=== PATIENT | female | born 1935 | race Caucasian/White ===

== ENCOUNTER 2023-06-03 06:14 | Day surgery (SDC) | payer MEDICARE, OTHER, SELFPAY ==
[2023-06-03] VITALS (29 sets, daily range): BP systolic 82–173; BP diastolic 54–139; BMI 22.1
[2023-06-03 07:10] LABS: Hematocrit 41.7 % (37.0-47.0); Hemoglobin 13.7 g/dL (12.0-16.0); Mean Corp Hgb Conc. 32.9 g/dL (33.0-37.0); Mean Corpuscular Hgb 29.5 pg (27.0-31.0); Mean Corpuscular Volume 89.9 fL (81.0-99.0); Mean Platelet Volume 11.5 fL (7.4-10.4); Platelet Count 224 10^3/uL (130-400); Red Blood Cell Count 4.64 10^6/uL (4.20-5.40); Red Cell Dist. Width 12.7 % (11.5-14.5); White Blood Cell Count 5.1 10^3/uL (4.8-10.8)
--- NOTE | 2023-06-03 07:10 | W.SUR.PREOP ---
Pre-Operative Surgical Note
-
I have examined this patient prior to the performance of the scheduled procedure.
The patient's condition is unchanged from the time of the current History and
Physical and the patient is able to undergo the scheduled procedure.
[2023-06-03 07:16] LABS: INR 0.96; PT 12.6 Sec (11.4-14.6)
[2023-06-03 07:17] LABS: APTT 27.2 Sec (23.4-35.0)
[2023-06-03 07:19] LABS: Blood Urea Nitrogen 14 mg/dl (7-17); Calcium 9.3 mg/dl (8.4-10.2); Carbon Dioxide 22 mmol/L (22-30); Chloride 111 mmol/L (98-107); Glucose 125 mg/dl (70-99); Potassium 4.2 mmol/L (3.5-5.1); Sodium 138 mmol/L (135-145); eGFR > 60.00
--- NOTE | 2023-06-03 09:07 | W.SUR.POST ---
Surgical Immediate Post Op
Note
Pre Op Diagnosis: PAD
Post Op Diagnosis: PAD
Procedure Performed:Right lower extremity arteriogram, DATA PROCESSING OPERATOR/stent to SFA
Primary Surgeon: Angel Bullock MD
Secondary Surgeons: N/A
Anesthesia: MAC
Estimated Blood Loss: Less than 20
Fluids: See anesthesia flow sheet
Drains/Shunts: N/A
Specimens/Cultures: N/A
Doppler/Duplex/Angio (Y/N): Y
Complications: None
Operative Findings: Successful endovascular treatment to SFA stenosis with palpable DP pulse following procedure
[2023-06-03] MEDS: MORPHINE SULFATE 1 MG IV (09:57)
[2023-06-03] MEDS: PLAVIX 300 MG PO (10:53)
[2023-06-03] MEDS: NSS 1000 IV (10:54)
[2023-06-03] MEDS: ASPIR LOW (ENTERIC COATED) 81 MG PO (11:10)
--- NOTE | 2023-06-03 11:35 | PTCARENOTE ---
[id number] addendum note...Patient reports discomfort to B/L LE and abdomen, bladder scan indicates 720 retained urine and straight cath'd for 800ML of urine. Ordered ASA and noted allergy. Discussed concerns/findings with Daisy gonzales to give
ASA. RN discussed with patient who refuses to take ASA and Daisy Kim will discuss with the patient. Patient reports relief of discomfort post bladder scan/cath.
--- NOTE | 2023-06-03 16:53 | W.PN.UPDATE ---
Update Note
Progress Note Update
This is a late entry:
Per patient's request spoke to her PCP Dr. Molly Yang at 1230 today who reviewed past medical history with me and patient over speaker phone. She verified that the patient has never had a GI bleed, she did have a one time occurrence of
gastritis while on aspirin that resulted in some vomiting. She and patient deny any decrease in HGB, bloody stools, coffee ground emesis, or hospitalization for GI bleed. PCP Dr. Yang agrees with initiation of aspirin and Plavix, and agreed to
monitor along with us in the outpatient setting. Patient agrees with DAPT medication, education provided on signs and symptoms of GI bleed.
--- NOTE | 2023-06-03 17:00 | OR.RPT ---
Operative Report
Operative Report
PROCEDURE DATE: 06/03/2023
Preoperative diagnosis: Peripheral arterial disease, possible ischemic rest pain bilateral right greater than left lower extremity.
Postoperative diagnosis: Same
Procedure:
1. Duplex assisted left common femoral artery cannulation.
2. Distal aortogram and pelvic angiogram.
3. Right lower extremity arteriogram with third order vessel catheterization of right popliteal artery via left common femoral artery puncture.
4. Balloon angioplasty of right superficial femoral artery and above-knee popliteal artery with 4 mm (and 5 mm) angioplasty balloon.
5. Placement of overlapping Signix Zilver PTX drug-eluting stents right above-knee popliteal artery and superficial femoral artery with 6 mm x 140 mm, 6 mm x 140 mm, 6 mm x 80 mm Zilver PTX stents.
6. Left lower extremity arteriogram.
7. Supervision and interpretation.
Surgeon: Kobe
Sweater Operator: None
Complications: None
Anesthesia: General
Fluoroscopy:
16.6 min
70 mGy
14.34 Gy.cm2
Indications for procedure:
Peripheral arterial disease noted with rest pain like symptoms in the bilateral feet. Patient had multiple etiologies for pain however. Discussed risk/benefits/alternatives of revascularization. Discussed benefits and potential short falls. She
understood all wish to proceed. She felt the right side was worse and therefore we proceeded on planning to intervene on the right side first.
Description of procedure:
Patient was identified, brought to the operating room. Placed on the table in the supine position. After the adequate administration of anesthesia, the patient was prepped and draped in the standard surgical fashion. A standard preoperative
timeout was undertaken and everybody was in agreement with the plan.
The left common femoral artery was accessed with a micropuncture kit under direct duplex ultrasound guidance. A 5 Peruvian sheath was then advanced over a 0.035 inch wire, and a osorio's hook catheter was advanced into the abdominal aorta.
Aortogram and pelvic angiogram was obtained. Findings as follows:
Infrarenal aorta: Distal infrarenal aorta patent with no significant stenosis.
Right common iliac artery: Patent with no significant stenosis
Right external iliac artery: Mild proximal luminal irregularities but no significant stenosis.
Left common iliac artery:Patent with no significant stenosis
Left external iliac artery: Mild proximal luminal irregularities but no significant stenosis.
Using a floppy angled hydrophilic wire, the right common femoral artery was cannulated and the catheter was advanced. Right lower extremity arteriogram was obtained. Findings as follows:
Common femoral artery: Patent with no significant stenosis.
Profunda femoris artery: Patent with no significant stenosis.
Superficial femoral artery: Near flush occlusion with small nub/trickle of flow into the proximal SFA.
Popliteal artery: Reconstituted flow via collaterals noted in above-knee popliteal artery. Patent flow through the above-knee, behind knee, below knee popliteal artery. Mid above-knee popliteal artery with additional moderate stenosis. Otherwise
no significant stenosis identified.
Anterior tibial artery: Patent without significant stenosis, dominant runoff vessel to the foot.
Tibial peroneal trunk: Patent with no significant stenosis.
Peroneal artery: Patent with no significant proximal stenosis, though flow distally became diminutive and very poor/wispy collaterals if at all noted at ankle.
Posterior tibial artery: Patent proximally for a couple centimeters and then occluded. No reconstituted flow noted.
At this point I then selectively cannulated the profunda femoris artery and then exchanged for an up and over 6 Peruvian sheath over a Storq wire. Next under roadmap assisted guidance I was able to cannulate the proximal SFA using a flopping on
hydrophilic wire and a CXI catheter. I then using subintimal technique was able to traverse the entirety of the SFA occlusion with some difficulty. I initially had difficulty reentering the true lumen but then in the above-knee popliteal artery
was finally able to enter the true lumen. Angiogram confirmed I was in the true lumen. I then exchanged back for a Storq wire. Of note the patient had been given an appropriate dose of heparin prior. I now performed balloon angioplasty with a 4
mm angioplasty balloon to predilate the entire occlusion area. There was still residual disease after I had balloon this and some flow limitation throughout dissection areas. Therefore I then elected to primarily stented the entire occlusion area
using overlapping 6 mm Zilver PTX stents (6 mm x 140, 6 mm x 140, 6 mm x 80). The stents were extended to the very origin of the SFA (or just beyond the origin), and distally to the above-knee popliteal artery. These were post angioplastied with a
5 mm balloon. Completion angiogram demonstrated excellent result through the stents with now with brisk flow. Distal to the stent in the popliteal artery as noted prior there was a moderate stenosis. I then angioplastied this with a 5 mm balloon.
In addition the very proximal SFA just beyond the proximal stent had a mild to moderate stenosis residually as well and then I angioplastied this with a 5 mm balloon as well. Completion angiogram now demonstrated complete resolution of the
stenoses after angioplasty. I now had an excellent angiographic result. There is brisk flow into the runoff. The sheath was withdrawn to the left external iliac artery. Left femoral angiogram and left lower extremity arteriogram demonstrated
patent left common femoral artery with some luminal irregularities but no significant stenosis. Profunda artery appeared widely patent. The SFA appeared chronically occluded. There was a collateral that emanated medially on the common femoral
that initially I thought was the SFA but clearly appeared to be a collateral. The main SFA itself was flush occluded and there was no nub into the artery. There was reconstituted flow in the above-knee popliteal artery. There was patent flow
through the popliteal into the runoff which appeared to proximally be a three-vessel runoff but as with the other side the anterior tibial artery appeared to be the dominant runoff vessel though the posterior tibial artery could be seen to fill
through the calf at least to the level of the ankle. At this point the wires and catheters were withdrawn. The sheath was withdrawn and manual pressure was applied to the puncture site. Full hemostasis was achieved. The patient tolerated the
procedure well. She had a palpable right dorsalis pedis pulse upon completion.
== END 2023-06-03 15:34 | disposition home or self-care (01) ==
LOC: CATH 06:14
PROVIDERS: ATTENDING PHYSICIAN Surgery Vascular Surgery; FAMILY PHYSICIAN Family Medicine
DX: I70.221 Atherosclerosis of native arteries of extremities with rest pain, right leg (principal); E78.5 Hyperlipidemia, unspecified; I10 Essential (primary) hypertension; M48.00 Spinal stenosis, site unspecified; Z87.891 Personal history of nicotine dependence
CPT/HCPCS: 37226; C1725; 75625; 75716; 76937; 80048; 85027; 85610; 85730; 86850; 86900; 86901; 93005; C1769; C1874; C1887; C1894; Q9967

== ENCOUNTER 2023-06-11 14:37 | Emergency (ER) | payer MEDICARE, OTHER, SELFPAY ==
[2023-06-11 15:21] LABS: % Basophils 0.5 % (0-2); % Immature Granulocytes 1.3 % (0-0.5); % Monocytes 6.8 % (1.7-9.3); % Neutrophils 63.4 % (42.2-75.2); Absolute Eosinophils 0.2 10^3/uL (0-0.7); Absolute Immature Granulocytes 0.1 10^3/uL (0-0.05); Absolute Lymphocytes 1.5 10^3/uL (1.2-3.4); Absolute Monocytes 0.4 10^3/uL (0.1-0.6); Absolute Neutrophils 3.9 10^3/uL (1.4-6.5); Hematocrit 38.4 % (37.0-47.0); Hemoglobin 12.5 g/dL (12.0-16.0); Mean Corp Hgb Conc. 32.6 g/dL (33.0-37.0); Mean Corpuscular Hgb 29.3 pg (27.0-31.0); Mean Corpuscular Volume 89.9 fL (81.0-99.0); Mean Platelet Volume 10.8 fL (7.4-10.4); Nucleated Red Blood Cells % 0 %; Platelet Count 275 10^3/uL (130-400); Red Blood Cell Count 4.27 10^6/uL (4.20-5.40); White Blood Cell Count 6.1 10^3/uL (4.8-10.8)
[2023-06-11 15:37] LABS: ALT (SGPT) 15 U/L (0-35); AST (SGOT) 23 U/L (14-36); Albumin 4.1 g/dl (3.5-5.0); Alkaline Phosphatase 77 U/L (38-126); Blood Urea Nitrogen 18 mg/dl (7-17); Calcium 9.3 mg/dl (8.4-10.2); Carbon Dioxide 25 mmol/L (22-30); Chloride 104 mmol/L (98-107); Glucose 98 mg/dl (70-99); Potassium 4.3 mmol/L (3.5-5.1); Sodium 137 mmol/L (135-145); Total Bilirubin 0.5 mg/dl (0.2-1.3); Total Protein 6.8 g/dl (6.3-8.2); eGFR > 60.00
--- NOTE | 2023-06-11 17:16 | W.PN.UPDATE ---
Update Note
Progress Note Update
Seen and evaluated in the emergency room. Known to me status post recent angiography with extensive right SFA stenting dated 06/03/2023. I discussed with her primary care Dr. Yang who had referred her to the emergency room due to increasing
swelling and some pain in the ankle and calf. The patient noticed over the last day or 2 she has had increasing swelling and some discomfort/pain in the ankle. Due to some concern due to recent stenting she was sent over here. In addition concern
for DVT. Patient does not note any pain in the toes. She does note that her pain with walking has certainly improved since the stents were placed.
Note, she did have hemorrhoidal bleeding likely related to aspirin and Plavix today. Seems under control for the most part now.
On exam/she is awake and alert. Right lower extremity is warm and well-perfused. Easily 2+ palpable DP pulse. Mild to moderate calf/foot swelling. She is mildly tender over the tendons there.
Plan/ Likely reperfusion related swelling. May be reperfusion pain as well. No evidence of ischemia. Stents widely patent by exam (excellent pulsation distally). DVT ultrasound was negative. Hemoglobin stable 12.5. Therefore would continue
dual antiplatelet therapy. She can follow-up with Dr. Yang and/or her GI doctor as outpatient regarding any further hemorrhoidal bleeding. Discussed with emergency room staff as well.
--- NOTE | 2023-06-11 17:18 | ED.GENMED ---
History of Present Illness
General
Chief Complaint: DVT/Possible Blood Clot
Time Seen by Provider: 06/11/23 17:08
Travel History
Have you had any contact with someone who has COVID-19?: No
Do you have any symptoms of coronavirus? Fever > 100 degrees, chills, cough, shortness of breath, sore throat, loss of taste or smell, muscle aches, or headache?: No
History of Present Illness
History of Present Illness:
87-year-old female presents the emergency department for evaluation of right lower extremity swelling and discomfort ongoing for the past several days. Improves each night but worsens when she wakes up and begins walking. She has not tried any
compression stockings. Denies any distal numbness. No exertional leg cramping
Past History
Past History
ED Past Medical History: HTN
ED Past Surgical History: Appendectomy
Social History
Tobacco: Former smoker
Personal:
Employment: Retired
Review of Systems
Review of Systems
Allergies reviewed?: Yes
All Other Systems: ROS reviewed and negative except as documented in HPI and ROS
Phy Exam
Physical Exam
Physical Exam:
GEN: Well appearing, NAD, WDWN
HEENT: Oral mucosa moist, no scleral icterus
Cardiac: Regular rate
Lung: No respiratory distress, no tachypnea
MSK: No gross deformity or injuries. Mild swelling of the right lower extremity from the ankle to the midfoot, no pain with passive range of motion, strong dorsalis pedis pulse
Skin: Good color, no pallor or jaundice, no rashes
Neuro: AO x3, moves all extremities freely
Psych: Calm, cooperative
Course
Orders/Labs/Results
Orders:
Orders
06/11/23 14:58
Venous Doppler Lwr Ext Rt [US Perip Venous LOWER Ext RT] Urgent
Comment:
Reason For Exam: DVT
06/11/23 15:13
Complete Blood Count/With Diff Urgent
Comprehensive Metabolic Panel Urgent
Abnormal Lab Results
06/11/23
15:13
MCHC 32.6 L g/dL
(33.0-37.0)
MPV 10.8 H fL
(7.4-10.4)
Abs Immat Gran (auto) 0.1 H 10^3/uL
(0-0.05)
Immature Gran % 1.3 H %
(0-0.5)
BUN 18 H mg/dl
(7-17)
06/11/23 15:13
06/11/23 15:13
Vital Signs
Initial and Last Documented VS:
Initial Vital Signs
Temp Pulse Resp Pulse Ox
97.7 F 69 18 98
06/11/23 14:54 06/11/23 14:54 06/11/23 14:54 06/11/23 14:54
Last Documented Vital Signs
Temp Pulse Resp Pulse Ox
97.7 F 69 18 98
06/11/23 14:54 06/11/23 14:54 06/11/23 14:54 06/11/23 14:54
MDM/Problems Addressed
MDM/Problems Addressed:
DVT ultrasound is unremarkable. Patient has strong pedal pulses and normal sensation. Likely peripheral edema given the waxing waning nature.
*Critical Care Note
Total Time (30-74mins, 75-104mins- exclusive of procedures): Not Applicable
ED Attending Note
-
Portions of this chart may have been created with voice recognition software.� Occasional wrong word or��sound alike� substitutions may have occurred due to the inherent limitations of voice recognition software.
Discharge Plan
Departure
Patient Disposition: Home (Routine Discharge)
Date of Disposition: 06/11/23
Time of Disposition: 17:18
Patient with high blood pressure during this ER visit?: No
Discharge Problem:
Edema of right lower extremity
Instructions: Dependent Edema (DC)
Prescriptions:
No Action
alprazolam 0.5 MG tablet
0.5 mg PO PRN PRN (Reason: ANXIETY)
alprazolam 1 mg Tablet
1 mg PO HS
lisinopril 20 mg Tablet
20 mg PO HS
amlodipine 2.5 mg Tablet
2.5 mg PO HS
acetaminophen 500 mg Tablet
1,000 mg PO Q6H PRN (Reason: PAIN)
tamsulosin 0.4 mg Capsule
0.4 mg PO HS
gabapentin 100 mg Capsule
200 mg PO TID
omeprazole 20 mg Tablet,Delayed Release (Dr/Ec)
20 mg PO DAILY
Pepto-Bismol Ultra 525 mg Tablet
1,050 mg PO Q1H PRN (Reason: GI UPSET)
Hold Instructions: Resume on 08/31/23.
mecobalamin (vitamin B12) 10,000 mcg Recon Soln
1,000 mcg IM Q30D
clopidogrel 75 mg Tablet
75 mg PO DAILY Qty: 90 0RF
aspirin [Children's Aspirin] 81 mg Tablet,Chewable
81 mg PO DAILY Qty: 90 0RF
Activity Restrictions/Additional Instructions:
Compression sleeve first thing in the morning
Interventions
Interventions:
*Risk Screen - Suicide Last Done: 06/11/23 14:57
*General Assessment Last Done: 06/11/23 14:57
*Neglect/Abuse Screening Last Done: 06/11/23 14:57
Discharge Date and Time
Print Language: SCOTTISH
== END 2023-06-11 17:30 | disposition home or self-care (01) ==
LOC: EMR 14:37
PROVIDERS: Student in an Organized Health Care Education/Training Program; EMERGENCY PHYSICIAN Emergency Medicine; FAMILY PHYSICIAN Family Medicine
DX: R22.41 Localized swelling, mass and lump, right lower limb (principal); Z87.891 Personal history of nicotine dependence
CPT/HCPCS: 99284; 80053; 85025; 93971

== ENCOUNTER → 2023-07-14 14:44 | Outpatient (REF) | payer MEDICARE, OTHER, SELFPAY | LOC: RAD 14:44 | PROVIDERS: ATTENDING PHYSICIAN Surgery Vascular Surgery; FAMILY PHYSICIAN Family Medicine | DX: I73.9 Peripheral vascular disease, unspecified (principal) | CPT/HCPCS: 93922; 93925 ==

== ENCOUNTER → 2025-02-03 14:31 | Outpatient (REF) | payer MEDICARE, OTHER, SELFPAY | LOC: REG 14:31 | PROVIDERS: ATTENDING PHYSICIAN Surgery Vascular Surgery; FAMILY PHYSICIAN Family Medicine | DX: I73.9 Peripheral vascular disease, unspecified (principal) | CPT/HCPCS: 36415 ==

== ENCOUNTER → 2025-02-14 11:02 | Outpatient (REF) | payer MEDICARE, OTHER, SELFPAY ==
[2025-02-14 12:37] LABS: Blood Urea Nitrogen 9 mg/dl (7-17); Calcium 9.0 mg/dl (8.4-10.2); Carbon Dioxide 27 mmol/L (22-30); Chloride 108 mmol/L (98-107); Glucose 107 mg/dl (70-99); Potassium 4.1 mmol/L (3.5-5.1); Sodium 139 mmol/L (135-145); eGFR > 60.00
== END ==
LOC: REG 11:02
PROVIDERS: ATTENDING PHYSICIAN Surgery Vascular Surgery; FAMILY PHYSICIAN Family Medicine
DX: I73.9 Peripheral vascular disease, unspecified (principal)
CPT/HCPCS: 36415; 80048

== ENCOUNTER → 2025-02-16 12:12 | Outpatient (REF) | payer MEDICARE, OTHER, SELFPAY | LOC: RAD 12:12 | PROVIDERS: ATTENDING PHYSICIAN Surgery Vascular Surgery; FAMILY PHYSICIAN Family Medicine | DX: I73.9 Peripheral vascular disease, unspecified (principal) | CPT/HCPCS: 75635; Q9967 ==